=== PATIENT | female | born 1960 | race Caucasian/White ===

== ENCOUNTER → 2022-09-21 | Outpatient (CLI) | payer OTHER ==
[~2022-09-21] MED LIST: ALBU90OI; ESTROGEN PO; MINO100 PO
== END | disposition home or self-care (01) ==
LOC: LAB SHORT 08:20 → LAB 08:20
DX: K62.5 Hemorrhage of anus and rectum (principal)
CPT/HCPCS: 83993

== ENCOUNTER 2022-09-30 09:18 | Day surgery (SDC) | payer OTHER ==
[~2022-09-30] VITALS: Ht 162.6 cm; Wt 87.2 kg
--- NOTE | 2022-09-30 15:13 | NUR ---
09/30/22 1513 Arlette Lester LATE ENTRY FOR TODAY DURING PROCEDURE PT TAKEN INTO ENDO 3 AND HOOKED UP TO MONITORS. PT WAS GIVEN 40MG IV PROPOFOL AND ONE MINUTE LATER WAS GIVEN A SECOND DOSE OF 40MG IV PROPOFOL. DR. OBRIEN THEN PROCEEDED TO START THE UPPER ENDOSCOPY AND PT WAS NOT COMPLETELY ASLEEP. PT'S EYES WERE WIDE OPEN AND BLINKING, PT WAS GAGGING AND TRYING TO REACH FOR THE SCOPE. DID NOT STOP PROCEDURE. PT THEN BEGAN TO DESAT WITH HER O2 DROPPING TO 85% ON 3LPM. RN DID JAW THRUST AND SATS INCREASED TO 93% BUT PATIENT WAS STILL COUGHING AND MOVING. RN CONTINUES TO GIVE PROPOFOL 20MG AT A TIME ONE MINUTE APART. PT CONTINUES TO MOVE AND COUGH. CONTINUEING WITH PROCEDURE. PT THEN STARTED TO DESAT AGAIN AND RN STOPPPED GIVING SEDATION AND MOVED TO THE HEAD OF THE BED AND STARTED JAW THRUST AND SUCTION TO GET PT'S SATS TO INCREASE. PT DESATED TO 65% ON 3LPM FOR APPROXIMATELY 30-45 SECONDS. NURSE CONTINUED WITH JAW THRUST. PT'S SATS FINALLY INCREASED TO 91% AFTER THE PROCEDURE WAS ENDED. RN LET PT WAKE UP AND ENCOURAGED PT TO COUGH, RN CONTNINUED TO SUCTION CLEAR SECRETIONS NEEDED. PT AWAKE AND SATS WERE 95% ON 3LPM. GURNEY WAS THEN TURNED AND PT RESEDATED FOR COLONOSCOPY. COLONOSCOPY STARTED AND PT DID WELL, CONTINUED TO BE SEDATED PER PROTOCOL. PT HAD MULTIPLE LARGE POLYPS THAT NEEDED REMOVED AND DUE TO THE EXTENDED PERIOD OF TIME SPENT IN THE COLON PT VOMITED MULTIPLE TIMES. ZOFRAN 4MG IV GIVEN, PT DID DESAT TO 90% ON 3LPM AND APPEARED TO BE HAVING LARYNGOSPASMS, 2% LIDOCAINE IV GIVEN TO BREAK SPASMS. PT'S SAT INCREASED AND REMAINED 99% THROUGHOUT THE REMAINDER OF THE COLONOSCOPY.
== END 2022-09-30 12:41 | disposition home or self-care (01) ==
LOC: ORSCSDS 09:18
PROVIDERS: Internal Medicine Gastroenterology
PROC: 0DBE8ZX Excision of Large Intestine, Via Natural or Artificial Opening Endoscopic, Diagnostic (ICD-10-PCS; principal; 2022-09-30 10:45)
PROC: 0DB88ZX Excision of Small Intestine, Via Natural or Artificial Opening Endoscopic, Diagnostic (ICD-10-PCS; principal; 2022-09-30 10:45)
PROC: 0DB98ZX Excision of Duodenum, Via Natural or Artificial Opening Endoscopic, Diagnostic (ICD-10-PCS; principal; 2022-09-30 10:45)
PROC: 0DB78ZX Excision of Stomach, Pylorus, Via Natural or Artificial Opening Endoscopic, Diagnostic (ICD-10-PCS; principal; 2022-09-30 10:45)
PROC: 0DBN8ZX Excision of Sigmoid Colon, Via Natural or Artificial Opening Endoscopic, Diagnostic (ICD-10-PCS; principal; 2022-09-30 10:45)
PROC: 0DBK8ZX Excision of Ascending Colon, Via Natural or Artificial Opening Endoscopic, Diagnostic (ICD-10-PCS; principal; 2022-09-30 10:45)
PROC: 0DBL8ZX Excision of Transverse Colon, Via Natural or Artificial Opening Endoscopic, Diagnostic (ICD-10-PCS; principal; 2022-09-30 10:45)
DX: R10.13 Epigastric pain (principal); K62.5 Hemorrhage of anus and rectum; K21.9 Gastro-esophageal reflux disease without esophagitis; K62.89 Other specified diseases of anus and rectum; K29.70 Gastritis, unspecified, without bleeding; D12.2 Benign neoplasm of ascending colon; K52.9 Noninfective gastroenteritis and colitis, unspecified; D12.3 Benign neoplasm of transverse colon; D12.5 Benign neoplasm of sigmoid colon; K57.30 Diverticulosis of large intestine without perforation or abscess without bleeding; K64.8 Other hemorrhoids
CPT/HCPCS: 88305; 88342; J2405; J2704; J7120

== ENCOUNTER 2023-09-07 07:37 | Day surgery (SDC) | payer OTHER ==
[~2023-09-07] VITALS: Ht 162.6 cm; Wt 85.7 kg
[~2023-09-07 07:37] MED LIST changes: +MESALAMINE PO; +PANT40 PO; +TERB250 PO
[2023-09-07] MEDS ORDERED: Lactated Ringer's 1,000 ML IV ONE ×2 (07:41→08:24)
[2023-09-07] MEDS ORDERED: OMEP20ER PO (08:20)
[2023-09-07] MEDS ORDERED: Ondansetron HCl 2 MG / ML 2ML Vial ONE (08:49)
[2023-09-07] MEDS ORDERED: Dexamethasone Sodium Phosphate 4 MG/ML 5ML VIAL ONE (08:50)
[2023-09-07] MEDS ORDERED: Lidocaine HCl 4% 5 ML SDA ONE (08:50)
[2023-09-07] MEDS ORDERED: propofoL 60 ML IV ONE (08:57)
[2023-09-07] MEDS ORDERED: propofoL 20 ML IV ONE (09:34)
[2023-09-07 10:04] VITALS: BP 108/74
== END 2023-09-07 10:24 | disposition home or self-care (01) ==
LOC: ORSCSDS 07:37
PROVIDERS: Internal Medicine Gastroenterology
PROC: 0DBL8ZX Excision of Transverse Colon, Via Natural or Artificial Opening Endoscopic, Diagnostic (ICD-10-PCS; principal; 2023-09-07 09:00)
PROC: 0DBK8ZX Excision of Ascending Colon, Via Natural or Artificial Opening Endoscopic, Diagnostic (ICD-10-PCS; principal; 2023-09-07 09:00)
PROC: 0DBP8ZX Excision of Rectum, Via Natural or Artificial Opening Endoscopic, Diagnostic (ICD-10-PCS; principal; 2023-09-07 09:00)
PROC: 0DJ08ZZ Inspection of Upper Intestinal Tract, Via Natural or Artificial Opening Endoscopic (ICD-10-PCS; principal; 2023-09-07 09:00)
PROC: 0DBN8ZX Excision of Sigmoid Colon, Via Natural or Artificial Opening Endoscopic, Diagnostic (ICD-10-PCS; principal; 2023-09-07 09:00)
PROC: 0DBE8ZX Excision of Large Intestine, Via Natural or Artificial Opening Endoscopic, Diagnostic (ICD-10-PCS; principal; 2023-09-07 09:00)
DX: K51.30 Ulcerative (chronic) rectosigmoiditis without complications (principal); K21.9 Gastro-esophageal reflux disease without esophagitis; D12.2 Benign neoplasm of ascending colon; D12.3 Benign neoplasm of transverse colon; D12.5 Benign neoplasm of sigmoid colon; K44.9 Diaphragmatic hernia without obstruction or gangrene; E78.5 Hyperlipidemia, unspecified; G47.33 Obstructive sleep apnea (adult) (pediatric); Z79.899 Other long term (current) drug therapy; E66.9 Obesity, unspecified; Z68.32 Body mass index [BMI] 32.0-32.9, adult
CPT/HCPCS: 88305; J1100; J2001; J2405; J2704; J7120

== ENCOUNTER 2024-11-15 09:07 | Day surgery (SDC) | payer OTHER ==
[~2024-11-15] VITALS: Ht 162.6 cm; Wt 183.0 kg
[~2024-11-15 09:07] MED LIST changes: +OMEP20ER PO; +SLEEP AID; +VITAMINS
[2024-11-15] MEDS ORDERED: PROGESTERONE5000 GM (09:38)
[2024-11-15] MEDS ORDERED: ESTRADIOL (TWI1 EACH (09:38)
[2024-11-15] MEDS ORDERED: PRESERVISION A1 EAC2 (09:39)
[2024-11-15] MEDS ORDERED: PROG100 (09:39)
[2024-11-15] MEDS ORDERED: GLUC500 (09:40)
[2024-11-15] MEDS ORDERED: Lactated Ringer's 1,000 ML IV ONE ×2 (10:55→13:00)
[2024-11-15] MEDS ORDERED: propofoL 50 ML IV ONE (12:14)
[2024-11-15] MEDS ORDERED: propofoL 0 ML IV ONE (12:44)
[2024-11-15 13:45] VITALS: BP 100/75
== END 2024-11-15 13:20 | disposition home or self-care (01) ==
LOC: ORSCSDS 09:07
DX: K51.30 Ulcerative (chronic) rectosigmoiditis without complications (principal); Z86.0101 Personal history of adenomatous and serrated colon polyps; D12.3 Benign neoplasm of transverse colon; K57.30 Diverticulosis of large intestine without perforation or abscess without bleeding; K64.4 Residual hemorrhoidal skin tags; K21.9 Gastro-esophageal reflux disease without esophagitis; E66.9 Obesity, unspecified; Z68.31 Body mass index [BMI] 31.0-31.9, adult; Z79.899 Other long term (current) drug therapy
CPT/HCPCS: 88305; J2704; J7120